=== PATIENT | male | born 1965 | race Caucasian/White ===

== ENCOUNTER 2016-09-27 14:56 | Emergency (ER) | payer SELFPAY ==
[~2016-09-27] VITALS: Ht 170.2 cm; Wt 74.8 kg
[2016-09-27 14:56] VITALS: BP 125/79; PULSE 73; RESP 16; TEMP 97.5; O2SAT 99
[2016-09-27] MEDS ORDERED: FOLIC ACID 1 MG, THIAMINE HCL 100 MG, MAGNESIUM SULFATE 1 GM, MVI 10 ML in NACL 0.9% 1,... IV ONE (15:30)
[2016-09-27] MEDS ORDERED: ONDANSETRON HCL 4 MG/2 ML VIAL IVP ONE (17:45)
[2016-09-27 19:52] VITALS: BP 122/79; PULSE 73; RESP 16; TEMP 97.5; O2SAT 99
== END 2016-09-27 19:52 | disposition home or self-care (01) ==
LOC: SED 14:56 → EDBD 14:56 → SED 19:52
DX: F10.129 Alcohol abuse with intoxication, unspecified (principal)
CPT/HCPCS: 96365; 96366; 96375; 99285; J2405; J3411; J3475; J3490; J7030